=== PATIENT | male | born 1990 ===

== ENCOUNTER 2022-12-01 06:48 | Day surgery (SDC) | payer OTHER ==
[~2022-12-01] VITALS: Ht 175.3 cm; Wt 68.0 kg
[~2022-12-01 06:48] MED LIST: PROAIR RESPICL90 MCG IH
== END 2022-12-01 14:45 | disposition home or self-care (01) ==
LOC: CIR.AMB 06:48
PROVIDERS: ATTEND Orthopaedic Surgery Hand Surgery
DX: S62.611B Displaced fracture of proximal phalanx of left index finger, initial encounter for open fracture (principal); E11.9 Type 2 diabetes mellitus without complications; E78.00 Pure hypercholesterolemia, unspecified; E78.3 Hyperchylomicronemia; Z20.822 Contact with and (suspected) exposure to COVID-19; Z79.4 Long term (current) use of insulin